=== PATIENT | male | born 1945 | race Caucasian/White ===

== ENCOUNTER 2021-08-21 15:49 | Inpatient (IN) | payer MEDICARE ==
[2021-08-21 17:18] LABS: #Eosinphils 0.1 10x3/uL (0.0-0.5); #Monocytes 0.5 10x3/uL (0.0-1.1); #Neutrophils 3.5 10x3/uL (1.5-8.4); %Basophils 0.6 % (0.0-2.0); %Eosinophils 1.6 % (0.0-6.0); %Lymphocytes 19.3 % (18.0-47.0); %Monocytes 8.9 % (0.0-10.0); %Neutrophils 69.2 % (40.0-75.0); Hemoglobin 8.6 g/dL (13.5-17.5); Mean Corpuscular HGB CONC 30.8 g/dL (32.0-36.0); Mean Corpuscular Hemoglobin 28.5 pg (27.0-33.0); Mean Corpuscular Volume 92.4 fl (81.2-95.1); Mean Platelet Volume 10.4 fl (7.4-10.4); Platelet Count 172 10x3/uL (150-450); RBC Distribution Width 16.8 % (11.5-14.5); Red Blood Cell (RBC) Count 3.02 10x6/uL (4.32-5.72); White Blood Cell (WBC) Count 5.1 10x3/uL (3.5-10.5)
[2021-08-21 17:50] LABS: ALT (SGPT) 12 U/L (8-55); AST (SGOT) 22 U/L (5-34); Albumin 4.1 g/dL (3.4-4.8); Alkaline Phosphatase 38 U/L (40-110); Anion Gap 14 mmol/L (10-20); BUN (Urea Nitrogen) 71 mg/dL (8.4-25.7); Bilirubin, Total 0.3 mg/dL (0.2-1.2); Calc. Creatinine Clearance 0 mL/min (70-130); Calcium 8.7 mg/dL (7.8-10.44); Carbon Dioxide 24 mmol/L (23-31); Chloride 102 mmol/L (98-107); Globulin 2.7 g/dL (2.4-3.5); Glucose 105 mg/dL (83-110); Potassium 4.9 mmol/L (3.5-5.1); Protein, Total 6.8 g/dL (5.8-8.1); Sodium 135 mmol/L (136-145)
[2021-08-21 17:55] LABS: CKMB 2.8 ng/mL (0-6.6)
[2021-08-21] MEDS ORDERED: Enoxaparin Sodium 120 MG/0.8 ML SYRINGE SC SCH (18:45)
[2021-08-21] MEDS ORDERED: Furosemide 40 MG/4 ML VIAL ONE (18:52)
[2021-08-21] MEDS ORDERED: cefTRIAXone\\ROCEPHIN 2 GM VIAL ONE (18:52)
[2021-08-21 19:49] LABS: SARS-CoV-2 NAA Rapid Test Not Detected (NotDetected)
[2021-08-21] MEDS ORDERED: Ondansetron ODT 4 MG TAB PO PRN (19:51)
[2021-08-21] MEDS ORDERED: Acetaminophen 325 MG TAB PO PRN (19:51)
[2021-08-21] MEDS ORDERED: Ondansetron PF 4 MG/2 ML Vial IVP PRN (19:51)
[2021-08-21] MEDS ORDERED: Azithromycin 500 MG VIAL ONE (19:51)
[2021-08-21] MEDS ORDERED: Acetaminophen 650 MG Suppository PR PRN (19:51)
[2021-08-21] MEDS ORDERED: Zolpidem Tartrate 5 MG TAB PO PRN (19:51)
[2021-08-21] MEDS ORDERED: Loperamide HCl 2 MG CAP PO PRN (19:51)
[2021-08-21] MEDS ORDERED: Heparin 10,000 UNITS/ 10 ML VIAL SLOW IVP SCH (20:00)
[2021-08-21 20:36] LABS: Hemoglobin 8.9 g/dL (13.5-17.5); Platelet Count 171 10x3/uL (150-450)
[2021-08-21 20:46] LABS: Magnesium 2.7 mg/dL (1.6-2.6); Phosphorus 4.6 mg/dL (2.3-4.7)
[2021-08-21 20:49] LABS: INR-International Normal Ratio 1.2; PTT 29.9 sec (22.0-33.0); Prothrombin Time 12.9 sec (9.5-12.1)
[2021-08-21] MEDS ORDERED: Dextrose 50% Abboject 50 ML SYRINGE SLOW IVP PRN (21:05)
[2021-08-21] MEDS ORDERED: Dextrose 5% in Water 1,000 ML IV PRN (21:05)
[2021-08-21] MEDS ORDERED: HumaLOG 300 UNITS/3 ML VIAL SC PRN (21:05)
[2021-08-21 21:09] LABS: CKMB 2.6 ng/mL (0-6.6)
[2021-08-21] MEDS ORDERED: Furosemide 100 MG/10 ML VIAL SLOW IVP SCH (22:15)
[2021-08-21 22:22] VITALS: BMI 39.9
[2021-08-21] MEDS ORDERED: FLU VACC QS2021-22(65YR UP)/PF 240 MCG/0.7 ML SYRINGE IM ONE (23:00)
[2021-08-21 23:18] LABS: Bilirubin Neg (Negative); Blood, Urine Negative (Negative); Clarity Clear (Clear); Glucose, Urine (Dipstick) Normal (Negative); Ketone, Urine Negative (Negative); Leukocyte Negative (Negative); Nitrite Negative (Negative); Protein, Urine (Dipstick) 15 mg/dl (Neg-Trace); Specific Gravity, Urine 1.015 (1.002-1.036); Urobilinogen Normal mg/dL (Less than 2)
[2021-08-21 23:28] LABS: Legionella Urinary Ag Negative (Negative); Strep pneumo Urine Ag NEGATIVE (NEGATIVE)
[2021-08-21 23:30] LABS: Bacteria/HPF 1+ HPF (None Seen); RBC/HPF None Seen HPF (0-3); Squamous Epithelial 0-3 HPF (0-3); WBC/HPF 0-3 HPF (0-3)
[2021-08-21 23:31] LABS: Mucous/LPF Rare LPF (<2+)
[2021-08-21 23:35] LABS: Actual Bicarbonate (HCO3a) 27.4 mEq/L (22-28); Base Excess (BEa) 1.9 mEq/L (-2.0 to +3.0); CO2 Tension 47.9 mmHg (35.0-45.0); Calcium, Ionized (arterial) 1.12 mmol/L (1.12-1.30); Carboxyhemoglobin (COHb) 0.5 gm% (0.0-3.0); Hemoglobin (Hb) 9.5 g/dL (14.0-18.0); O2 Tension (PaO2), arterial 69.6 mmHg (> 70.0); Potassium - ABG Lab 3.7 mmol/L (3.70-5.30); Puncture Site RRA; pH, Arterial 7.38 (7.35-7.45)
[2021-08-21 23:38] LABS: ALV-art Gradient 127.205 mmHg (0-20)
[2021-08-22 01:33] LABS: CKMB 2.7 ng/mL (0-6.6)
[2021-08-22 03:52] LABS: #Eosinphils 0.1 10x3/uL (0.0-0.5); #Monocytes 0.4 10x3/uL (0.0-1.1); %Basophils 0.9 % (0.0-2.0); %Eosinophils 1.7 % (0.0-6.0); %Lymphocytes 23.3 % (18.0-47.0); %Monocytes 8.9 % (0.0-10.0); Hemoglobin 8.6 g/dL (13.5-17.5); Mean Corpuscular HGB CONC 31.9 g/dL (32.0-36.0); Mean Corpuscular Hemoglobin 28.8 pg (27.0-33.0); Mean Corpuscular Volume 90.3 fl (81.2-95.1); Mean Platelet Volume 11.1 fl (7.4-10.4); Platelet Count 165 10x3/uL (150-450); RBC Distribution Width 16.6 % (11.5-14.5); Red Blood Cell (RBC) Count 2.99 10x6/uL (4.32-5.72); White Blood Cell (WBC) Count 4.6 10x3/uL (3.5-10.5)
[2021-08-22 04:07] LABS: ALT (SGPT) 10 U/L (8-55); AST (SGOT) 20 U/L (5-34); Albumin 3.8 g/dL (3.4-4.8); Alkaline Phosphatase 34 U/L (40-110); Anion Gap 14 mmol/L (10-20); BUN (Urea Nitrogen) 65 mg/dL (8.4-25.7); Bilirubin, Total 0.3 mg/dL (0.2-1.2); Calc. Creatinine Clearance 30 mL/min (70-130); Calcium 8.8 mg/dL (7.8-10.44); Carbon Dioxide 28 mmol/L (23-31); Chloride 100 mmol/L (98-107); Globulin 3.1 g/dL (2.4-3.5); Glucose 84 mg/dL (83-110); Potassium 3.9 mmol/L (3.5-5.1); Protein, Total 6.9 g/dL (5.8-8.1); Sodium 138 mmol/L (136-145)
[2021-08-22] MEDS: Furosemide 100 MG/10 ML VIAL SLOW IVP SCH ×2 (05:09→15:00)
[2021-08-22] MEDS: cefTRIAXone\\ROCEPHIN 1 GM in Sodium Chloride 0.9% 100 ML IVPB SCH (05:10)
[2021-08-22] MEDS ORDERED: Heparin 10,000 UNITS/ 10 ML VIAL SLOW IVP SCH (08:00)
[2021-08-22] MEDS ORDERED: Heparin 25,000 units/D5W 500 ML IVPB SCH (08:00)
[2021-08-22] MEDS: Famotidine 20 MG TAB PO SCH (09:55)
[2021-08-22 13:12] LABS: Hemoglobin A1c 5.7 % (4.0-6.0)
[2021-08-22 16:31] LABS: Anion Gap 14 mmol/L (10-20); BUN (Urea Nitrogen) 58 mg/dL (8.4-25.7); Calc. Creatinine Clearance 36 mL/min (70-130); Calcium 9.1 mg/dL (7.8-10.44); Carbon Dioxide 32 mmol/L (23-31); Chloride 97 mmol/L (98-107); Glucose 100 mg/dL (83-110); Potassium 3.9 mmol/L (3.5-5.1); Sodium 139 mmol/L (136-145)
[2021-08-22] MEDS ORDERED: Prasugrel 10 MG TAB PO SCH (17:00)
[2021-08-22] MEDS ORDERED: Sodium Chloride 0.9% 250 ML 250 ML ONE (20:01)
[2021-08-22] MEDS ORDERED: Azithromycin 500 MG VIAL ONE (20:01)
[2021-08-22] MEDS: Azithromycin 500 MG in Sodium Chloride 0.9% 250 ML 250 ML IVPB SCH (20:24)
[2021-08-22] MEDS: Rosuvastatin 10 MG TAB PO SCH (20:25)
[2021-08-22] MEDS ORDERED: Metoprolol Tartrate 25 MG TAB PO SCH (21:00)
[2021-08-22] MEDS ORDERED: Fenofibrate Nanocrystallized 145 MG TAB PO SCH (21:00)
[2021-08-22] MEDS ORDERED: Tamsulosin HCl 0.4 MG CAP PO SCH (21:00)
[2021-08-22] MEDS: Tamsulosin HCl 0.4 MG CAP PO SCH (22:21)
[2021-08-22 22:52] LABS: Creatinine, Urine 29.04 mg/dL (63-166)
[2021-08-23 05:06] LABS: Anion Gap 14 mmol/L (10-20); BUN (Urea Nitrogen) 51 mg/dL (8.4-25.7); Calc. Creatinine Clearance 41 mL/min (70-130); Calcium 9.3 mg/dL (7.8-10.44); Carbon Dioxide 34 mmol/L (23-31); Chloride 97 mmol/L (98-107); Glucose 98 mg/dL (83-110); Potassium 3.3 mmol/L (3.5-5.1); Sodium 142 mmol/L (136-145)
[2021-08-23 05:09] LABS: Iron 36 ug/dL (65-175); Iron Binding Capacity, Total 373 mcg/dL (261-462)
[2021-08-23] MEDS: Furosemide 100 MG/10 ML VIAL SLOW IVP SCH (05:36)
[2021-08-23] MEDS: cefTRIAXone\\ROCEPHIN 1 GM in Sodium Chloride 0.9% 100 ML IVPB SCH (05:36)
[2021-08-23] MEDS: Levothyroxine 150 MCG TAB PO SCH (05:37)
[2021-08-23] MEDS ORDERED: Potassium Chloride 20 MEQ TAB PO SCH (06:00)
[2021-08-23] MEDS ORDERED: Spironolactone 25 MG TAB PO SCH (08:00)
[2021-08-23] MEDS: Aspirin Chewable 81 MG TAB PO SCH (08:56)
[2021-08-23] MEDS: Carvedilol 3.125 MG TAB PO SCH ×2 (08:56→16:30)
[2021-08-23] MEDS: Tamsulosin HCl 0.4 MG CAP PO SCH ×2 (08:56→21:45)
[2021-08-23] MEDS: Famotidine 20 MG TAB PO SCH (08:57)
[2021-08-23] MEDS: Allopurinol 300 MG TAB PO SCH (08:57)
[2021-08-23] MEDS ORDERED: Metoprolol Tartrate 50 MG TAB PO SCH (09:00)
[2021-08-23] MEDS ORDERED: Iron, Sodium Ferric Gluconate 250 MG, Admixture Fee 1 EACH in Sodium Chloride 0.9% 250 ... IVPB SCH (09:00)
[2021-08-23] MEDS ORDERED: EPOETIN ALFA-EPBX (ESRD) 10,000 UNIT/ML VIAL SC SCH (09:00)
[2021-08-23] MEDS: Furosemide 40 MG/4 ML VIAL SLOW IVP SCH (09:09)
[2021-08-23] MEDS: Prasugrel 10 MG TAB PO SCH (09:30)
[2021-08-23 12:36] LABS: Anion Gap 16 mmol/L (10-20); BUN (Urea Nitrogen) 47 mg/dL (8.4-25.7); Calc. Creatinine Clearance 43 mL/min (70-130); Calcium 9.5 mg/dL (7.8-10.44); Carbon Dioxide 32 mmol/L (23-31); Chloride 95 mmol/L (98-107); Glucose 124 mg/dL (83-110); Potassium 3.7 mmol/L (3.5-5.1); Sodium 139 mmol/L (136-145)
[2021-08-23] MEDS: Heparin 5,000 UNITS/ML VIAL SC SCH ×2 (15:55→21:00)
[2021-08-23 20:05] LABS: Hemoglobin 10.2 g/dL (13.5-17.5); Platelet Count 201 10x3/uL (150-450)
[2021-08-23] MEDS: Azithromycin 500 MG in Sodium Chloride 0.9% 250 ML 250 ML IVPB SCH (21:00)
[2021-08-23] MEDS ORDERED: Sodium Chloride 0.9% 250 ML 250 ML ONE ×2 (21:13→21:14)
[2021-08-23] MEDS: Rosuvastatin 10 MG TAB PO SCH (21:45)
[2021-08-24 03:38] LABS: Anion Gap 14 mmol/L (10-20); BUN (Urea Nitrogen) 44 mg/dL (8.4-25.7); Calc. Creatinine Clearance 43 mL/min (70-130); Calcium 9.4 mg/dL (7.8-10.44); Carbon Dioxide 32 mmol/L (23-31); Chloride 97 mmol/L (98-107); Glucose 100 mg/dL (83-110); Potassium 3.4 mmol/L (3.5-5.1); Sodium 140 mmol/L (136-145)
[2021-08-24] MEDS: Levothyroxine 150 MCG TAB PO SCH (07:28)
[2021-08-24] MEDS: cefTRIAXone\\ROCEPHIN 1 GM in Sodium Chloride 0.9% 100 ML IVPB SCH (07:28)
[2021-08-24] MEDS ORDERED: Potassium Chloride 20 MEQ TAB PO SCH (07:30)
[2021-08-24] MEDS ORDERED: Carvedilol 12.5 MG TAB PO SCH (08:00)
[2021-08-24] MEDS: Allopurinol 300 MG TAB PO SCH (08:05)
[2021-08-24] MEDS: Aspirin Chewable 81 MG TAB PO SCH (08:06)
[2021-08-24] MEDS: Furosemide 40 MG/4 ML VIAL SLOW IVP SCH (08:06)
[2021-08-24] MEDS: Heparin 5,000 UNITS/ML VIAL SC SCH ×3 (08:06→20:36)
[2021-08-24] MEDS: Famotidine 20 MG TAB PO SCH (08:06)
[2021-08-24] MEDS: Prasugrel 10 MG TAB PO SCH (08:07)
[2021-08-24] MEDS: NIFEdipine XL 60 MG TAB PO SCH (08:07)
[2021-08-24] MEDS ORDERED: Carvedilol 6.25 MG TAB PO SCH (08:30)
[2021-08-24] MEDS: Spironolactone 25 MG TAB PO SCH (09:00)
[2021-08-24] MEDS: Carvedilol 6.25 MG TAB PO SCH (16:44)
[2021-08-24] MEDS ORDERED: Carvedilol 25 MG TAB PO SCH (17:00)
[2021-08-24] MEDS: Rosuvastatin 10 MG TAB PO SCH (20:35)
[2021-08-24] MEDS: Tamsulosin HCl 0.4 MG CAP PO SCH (20:36)
[2021-08-24] MEDS: Azithromycin 250 MG TAB PO SCH (20:36)
[2021-08-25] MEDS: cefTRIAXone\\ROCEPHIN 1 GM in Sodium Chloride 0.9% 100 ML IVPB SCH (06:06)
[2021-08-25] MEDS: Levothyroxine 150 MCG TAB PO SCH (06:06)
[2021-08-25 07:42] LABS: Albumin 4.1 g/dL (3.4-4.8); Anion Gap 16 mmol/L (10-20); BUN (Urea Nitrogen) 44 mg/dL (8.4-25.7); Calc. Creatinine Clearance 46 mL/min (70-130); Calcium 9.6 mg/dL (7.8-10.44); Carbon Dioxide 28 mmol/L (23-31); Chloride 100 mmol/L (98-107); Glucose 126 mg/dL (83-110); Phosphorus 2.4 mg/dL (2.3-4.7); Potassium 3.7 mmol/L (3.5-5.1); Sodium 140 mmol/L (136-145)
[2021-08-25] MEDS: NIFEdipine XL 60 MG TAB PO SCH (08:55)
[2021-08-25] MEDS: Spironolactone 25 MG TAB PO SCH (08:56)
[2021-08-25] MEDS: Aspirin Chewable 81 MG TAB PO SCH (08:56)
[2021-08-25] MEDS: Carvedilol 6.25 MG TAB PO SCH ×2 (08:56→17:37)
[2021-08-25] MEDS: Allopurinol 300 MG TAB PO SCH (08:56)
[2021-08-25] MEDS: Famotidine 20 MG TAB PO SCH (08:56)
[2021-08-25] MEDS: Heparin 5,000 UNITS/ML VIAL SC SCH ×3 (08:57→20:28)
[2021-08-25] MEDS: Furosemide 40 MG TAB PO SCH (08:57)
[2021-08-25] MEDS: Prasugrel 10 MG TAB PO SCH ×2 (08:57→09:05)
[2021-08-25] MEDS: Azithromycin 250 MG TAB PO SCH (20:28)
[2021-08-25] MEDS: Tamsulosin HCl 0.4 MG CAP PO SCH (20:28)
[2021-08-25] MEDS: Rosuvastatin 10 MG TAB PO SCH (20:28)
[2021-08-25 20:59] LABS: Hemoglobin 10.4 g/dL (13.5-17.5); Platelet Count 208 10x3/uL (150-450)
[2021-08-26] MEDS: Levothyroxine 150 MCG TAB PO SCH (05:19)
[2021-08-26 07:17] LABS: Albumin 3.9 g/dL (3.4-4.8); Anion Gap 14 mmol/L (10-20); BUN (Urea Nitrogen) 48 mg/dL (8.4-25.7); BUN/Creatinine Ratio 20.43; Calc. Creatinine Clearance 45 mL/min (70-130); Calcium 9.4 mg/dL (7.8-10.44); Carbon Dioxide 27 mmol/L (23-31); Chloride 99 mmol/L (98-107); Glucose 154 mg/dL (83-110); Potassium 3.3 mmol/L (3.5-5.1); Sodium 137 mmol/L (136-145)
[2021-08-26 07:18] LABS: #Eosinphils 0.3 10x3/uL (0.0-0.5); #Monocytes 0.6 10x3/uL (0.0-1.1); #Neutrophils 5.1 10x3/uL (1.5-8.4); %Basophils 0.4 % (0.0-2.0); %Eosinophils 4.2 % (0.0-6.0); %Lymphocytes 16.5 % (18.0-47.0); %Monocytes 8.2 % (0.0-10.0); %Neutrophils 70.3 % (40.0-75.0); Mean Corpuscular HGB CONC 31.5 g/dL (32.0-36.0); Mean Corpuscular Hemoglobin 28.2 pg (27.0-33.0); Mean Corpuscular Volume 89.3 fl (81.2-95.1); Mean Platelet Volume 10.2 fl (7.4-10.4); Platelet Count 216 10x3/uL (150-450); RBC Distribution Width 16.3 % (11.5-14.5); Red Blood Cell (RBC) Count 3.55 10x6/uL (4.32-5.72); White Blood Cell (WBC) Count 7.2 10x3/uL (3.5-10.5)
[2021-08-26] MEDS ORDERED: Spironolactone 25 MG TAB PO SCH (08:00)
[2021-08-26] MEDS ORDERED: Potassium Chloride 20 MEQ TAB PO SCH (08:45)
[2021-08-26 09:46] VITALS: TEMP 97.9
[2021-08-26] MEDS: Carvedilol 6.25 MG TAB PO SCH (09:49)
[2021-08-26] MEDS: Allopurinol 300 MG TAB PO SCH (09:50)
[2021-08-26] MEDS: Aspirin Chewable 81 MG TAB PO SCH (09:50)
[2021-08-26] MEDS: Furosemide 40 MG TAB PO SCH (09:50)
[2021-08-26] MEDS: Famotidine 20 MG TAB PO SCH (09:50)
[2021-08-26] MEDS: Heparin 5,000 UNITS/ML VIAL SC SCH (09:50)
[2021-08-26] MEDS: Prasugrel 10 MG TAB PO SCH (09:51)
[2021-08-26] MEDS: NIFEdipine XL 60 MG TAB PO SCH (09:51)
[2021-08-26 12:20] VITALS: BP 110/50
== END 2021-08-26 14:15 | disposition home or self-care (01) | DRG 291 ==
LOC: CSHERS 15:49 → CSHIMCU 15:50 → CSHTELE 08-22 08:40
PROVIDERS: ADMIT Family Medicine; ATTEND Hospitalist
DX: I13.0 Hypertensive heart and chronic kidney disease with heart failure and stage 1 through stage 4 chronic kidney disease, or unspecified chronic kidney disease (principal); I50.33 Acute on chronic diastolic (congestive) heart failure; J96.21 Acute and chronic respiratory failure with hypoxia; N18.4 Chronic kidney disease, stage 4 (severe); N17.9 Acute kidney failure, unspecified; Z68.41 Body mass index [BMI] 40.0-44.9, adult; B19.10 Unspecified viral hepatitis B without hepatic coma; E11.22 Type 2 diabetes mellitus with diabetic chronic kidney disease; Z20.822 Contact with and (suspected) exposure to COVID-19; I25.10 Atherosclerotic heart disease of native coronary artery without angina pectoris; E78.5 Hyperlipidemia, unspecified; E66.01 Morbid (severe) obesity due to excess calories; D63.1 Anemia in chronic kidney disease; R79.89 Other specified abnormal findings of blood chemistry; N40.0 Benign prostatic hyperplasia without lower urinary tract symptoms; E87.6 Hypokalemia; K21.9 Gastro-esophageal reflux disease without esophagitis; E78.00 Pure hypercholesterolemia, unspecified; E03.9 Hypothyroidism, unspecified; R19.7 Diarrhea, unspecified; G47.33 Obstructive sleep apnea (adult) (pediatric); Z95.1 Presence of aortocoronary bypass graft; Z95.2 Presence of prosthetic heart valve; Z79.899 Other long term (current) drug therapy; Z79.82 Long term (current) use of aspirin; Z79.890 Hormone replacement therapy; Z88.6 Allergy status to analgesic agent; Z88.8 Allergy status to other drugs, medicaments and biological substances; Z91.041 Radiographic dye allergy status; Z99.81 Dependence on supplemental oxygen; Z95.5 Presence of coronary angioplasty implant and graft; Z87.891 Personal history of nicotine dependence; Z79.4 Long term (current) use of insulin; Z79.2 Long term (current) use of antibiotics; Z80.1 Family history of malignant neoplasm of trachea, bronchus and lung; Z83.6 Family history of other diseases of the respiratory system
CPT/HCPCS: 36415; 36416; 36600; 71045; 76700; 78451; 80048; 80053; 80069; 81001; 82553; 82570; 82728; 82805; 83036; 83540; 83550; 83735; 83880; 84100; 84145; 84156; 84300; 84484; 84540; 85014; 85018; 85025; 85049; 85379; 85610; 85730; 86850; 86900; 86901; 87040; 87449; 87633; 87899; 93005; 93010; 93306; 93970; 94760; 96365; 96366; 96367; 96372; 96375; A9540; J0456; J0696; J1644; J1650; J1940; J2916; J3490; J7050; Q5105; U0002